=== PATIENT | male | born 1995 | race African-American/Black ===

== ENCOUNTER 2016-08-09 23:50 | Emergency (ER) | payer BC, OTHER ==
[~2016-08-09] VITALS: Ht 180.3 cm; Wt 142.9 kg
[2016-08-09 23:51] VITALS: BP 134/87
[2016-08-10] MEDS ORDERED: AUGMENTIN 875-1 EACH PO (00:25)
[2016-08-10] MEDS ORDERED: TOBRADEX EYE DRO5 ML OP (00:25)
[2016-08-10] MEDS ORDERED: TOBRAMYCIN SULFA5 M1 OP (00:32)
== END 2016-08-10 00:36 | disposition home or self-care (01) ==
LOC: ER 23:50
DX: J01.90 Acute sinusitis, unspecified (principal)

== ENCOUNTER 2018-05-10 09:40 | Emergency (ER) | payer BC, OTHER ==
[~2018-05-10] VITALS: Ht 180.3 cm; Wt 134.3 kg
[~2018-05-10 09:40] MED LIST: AUGMENTIN 875-1 EACH PO; TOBRADEX EYE DRO5 ML OP; TOBRAMYCIN SULFA5 M1 OP
[2018-05-10] MEDS ORDERED: MAGIC MOUTHWASH SWISH&SPIT (10:13)
[2018-05-10] MEDS ORDERED: PENICILLIN V P500 MG PO (10:13)
[2018-05-10 10:39] VITALS: BP 128/80
== END 2018-05-10 10:26 | disposition home or self-care (01) ==
LOC: ER 09:40
DX: K05.10 Chronic gingivitis, plaque induced (principal)